=== PATIENT | male | born 1970 | race Two or more races ===

== ENCOUNTER 2022-07-04 20:53 | Inpatient (IN) | payer MEDICAID, OTHER ==
[~2022-07-04] VITALS: Ht 185.4 cm; Wt 96.0 kg
[2022-07-04] MEDS ORDERED: InsuLIN REG 1unit/0.01ml Soln (100units/ml) IV ONE (21:45)
[2022-07-04] MEDS ORDERED: PIPERACILLIN-TAZOB 3.375GM 100 ML IV ONE (21:45)
[2022-07-04] MEDS ORDERED: EPINEPHrine HCL 1 MG/10 ML SYRG IV ONE (21:45)
[2022-07-04] MEDS ORDERED: SODIUM CHLORIDE 0.9% 1,000 ML IV ONE (21:45)
[2022-07-04 22:36] LABS: Basophils # (auto) 0 10 ^3/uL (0-0.2); Basophils % (auto) 0.2 % (0.0-2.0); Eosinophils # (auto) 0 10 ^3/uL (0-0.8); Hematocrit 40.8 % (41.0-53.0); Lymphocytes # (auto) 0.9 10 ^3/uL (0.4-5.4); Lymphocytes % (auto) 11.8 % (10.0-50.0); Mean Corpuscular Hgb Conc. 31.9 g/dL (32.0-36.0); Mean Corpuscular Volume 94.3 fL (80.0-100.0); Monocytes # (auto) 0.7 10 ^3/uL (0-1.3); Monocytes % (auto) 8.9 % (0.0-12.0); Neutrophils # (auto) 5.9 10 ^3/uL (1.6-8.6); Neutrophils % (auto) 79.1 % (37.0-80.0); Nucleated Red Blood Cells % 0.1 %; Red Blood Cells 4.33 10^6/uL (4.5-5.90); White Blood Cell 7.4 10^3/uL (4.4-10.8)
[2022-07-04 22:42] LABS: Red Cell Distribution Width 21.5 % (11.8-14.3)
[2022-07-04 22:52] LABS: INR 0.92 (0.9-1.15); Partial Thromboplastin Time 21.7 sec (24.6-33.4)
[2022-07-04 22:56] LABS: Albumin 3.9 g/dL (3.4-5.0); Anion Gap 23 (5-15); Blood Urea Nitrogen 36 mg/dL (7-18); Calcium 10.5 mg/dL (8.5-10.1); Carbon Dioxide 28 mmol/L (21-32); Chloride 79 mmol/L (98-107); Magnesium 2.3 mg/dL (1.6-2.6); Potassium 3.4 mmol/L (3.5-5.1); Sodium 130 mmol/L (136-145)
[2022-07-04 22:58] LABS: Lactic Acid w/Reflex 11.5 mmol/L (0.4-2.0)
[2022-07-04 22:59] LABS: Alanine Aminotransferase 14 U/L (16-61); BUN/Creatinine Ratio 11.8; Bilirubin, Total 0.4 mg/dL (0.2-1.0); GFR African American 28 mL/min; GFR Non-African American 23 mL/min; Total Protein 8.2 g/dL (6.4-8.2)
[2022-07-04] MEDS ORDERED: BACL10TA PO (23:00)
[2022-07-04] MEDS ORDERED: CLON0.3D4 PO (23:00)
[2022-07-04] MEDS ORDERED: EZET10TA22 PO (23:00)
[2022-07-04] MEDS ORDERED: TRAZ50TA2 PO (23:00)
[2022-07-04] MEDS ORDERED: ONDA-144 PO (23:00)
[2022-07-04] MEDS ORDERED: LORA1TAB23 PO (23:00)
[2022-07-04] MEDS ORDERED: ATOR40TA52 PO (23:00)
[2022-07-04] MEDS ORDERED: OLAN2.5T38 PO (23:00)
[2022-07-04] MEDS ORDERED: ENOX80IN SC (23:00)
[2022-07-04] MEDS ORDERED: RAMI2.5C33 PO (23:00)
[2022-07-04] MEDS ORDERED: INSLISPI SC (23:00)
[2022-07-04 23:03] LABS: Glucose 891 mg/dL (74-106)
[2022-07-04 23:05] LABS: Alkaline Phosphatase 88 U/L (45-117)
[2022-07-04 23:21] LABS: Aspartate Aminotransferase < 3 U/L (15-37)
[2022-07-04] MEDS ORDERED: InsuLIN REG 1unit/0.01ml Soln (100units/ml) ONE (23:29)
[2022-07-04] MEDS ORDERED: InsuLIN R (HUMAN) 100 UNITS in SODIUM CHL 0.9% 99 ML IV SCH (23:30)
[2022-07-04] MEDS ORDERED: INSULIN LANTUS (GLARGINE) 1 /0.01ml (100units/ml) SC ONE (23:30)
[2022-07-04] MEDS ORDERED: DEXTROSE (50%) 50ML SYRG IV PRN (23:30)
[2022-07-04] MEDS ORDERED: SODIUM CHLORIDE 0.9% 1,000 ML IV SCH (23:30)
[2022-07-05] MEDS: ACCU-CHEK COMFORT CURVE STRIP VI SCH ×11 (00:02→22:16)
[2022-07-05 00:18] LABS: Urine Bacteria NONE SEEN /hpf (None Seen); Urine Blood Negative /uL (Negative); Urine Mucus FEW (None Seen); Urine Specific Gravity 1.025 (1.001-1.035); Urine WBC 3 /hpf (0 - 3)
[2022-07-05] MEDS ORDERED: InsuLIN R (HUMAN) 100 UNITS in SODIUM CHL 0.9% 99 ML IV SCH (00:30)
[2022-07-05] MEDS ORDERED: DOCUSATE SOD 100 MG CAP PO PRN (00:30)
[2022-07-05] MEDS ORDERED: TEMAZEPAM 15 MG CAP PO PRN (00:30)
[2022-07-05] MEDS ORDERED: INSULIN LANTUS (GLARGINE) 1 /0.01ml (100units/ml) SC ONE (00:30)
[2022-07-05] MEDS ORDERED: MORPHINE SULFATE INJ 2 MG/ml SYRG IV PRN (00:30)
[2022-07-05] MEDS ORDERED: LORazepam 0.5 MG TAB PO PRN (00:30)
[2022-07-05] MEDS ORDERED: ONDANSETRON HCL 4 MG/2 ML VIAL IV PRN (00:30)
[2022-07-05] MEDS ORDERED: HYDROcodone-ACET 5/325MG TAB PO PRN (00:30)
[2022-07-05] MEDS ORDERED: DEXTROSE (50%) 50ML SYRG IV PRN (00:30)
[2022-07-05] MEDS: SODIUM CHLORIDE 0.9% 1,000 ML IV SCH ×4 (00:45→11:27)
[2022-07-05 02:01] LABS: Calcium 9.6 mg/dL (8.5-10.1); Potassium 3.7 mmol/L (3.5-5.1)
[2022-07-05] MEDS ORDERED: SODIUM CHLORIDE 0.9% 1,000 ML IV SCH ×3 (04:30→12:00)
[2022-07-05] MEDS: InsuLIN REG 1unit/0.01ml Soln (100units/ml) SC SCH ×4 (07:00→22:00)
[2022-07-05 07:53] LABS: Calcium 9.3 mg/dL (8.5-10.1); Potassium 3.4 mmol/L (3.5-5.1)
[2022-07-05 07:55] LABS: BUN/Creatinine Ratio 19.1
[2022-07-05 07:56] LABS: Hematocrit 34.9 % (41.0-53.0); Hemoglobin 11.7 g/dL (13.5-17.5); Mean Corpuscular Hgb Conc. 33.5 g/dL (32.0-36.0); Mean Corpuscular Volume 89.6 fL (80.0-100.0); White Blood Cell 6.6 10^3/uL (4.4-10.8)
[2022-07-05 08:05] LABS: Red Cell Distribution Width 21.4 % (11.8-14.3)
[2022-07-05 08:08] LABS: Basophils % (manual) 0 (0.0-2.0); Blast Cells 0; Myelocytes % 0; Promyelocytes % 0; Reactive Lymphocytes 0
[2022-07-05 09:17] LABS: Band Neutrophils % (manual) 50; Eosinophils % (manual) 2 (0-7); Lymphocytes % (manual) 27 (10.0-50.0); Metamyelocytes % 2; Monocytes % (manual) 15 (0-12)
[2022-07-05] MEDS ORDERED: INSULIN LANTUS (GLARGINE) 1 /0.01ml (100units/ml) SC SCH (10:00)
[2022-07-05] MEDS ORDERED: PANTOPRAZOLE 40 MG/10 ML VIAL INJ IV ONE (12:00)
[2022-07-05] MEDS: SOD CHL 0.9%/ KCL 20MEQ 1,000 ML IV SCH ×2 (12:35→22:55)
[2022-07-05] MEDS: MIDODRINE HCL 10 MG TAB PO SCH ×2 (12:35→18:04)
[2022-07-05] MEDS: INSULIN LANTUS (GLARGINE) 1 /0.01ml (100units/ml) SC SCH (12:39)
[2022-07-05 13:52] LABS: Lactic Acid w/Reflex 4.3 mmol/L (0.4-2.0)
[2022-07-06 05:00] VITALS: BP 122/65
[2022-07-06] MEDS: MIDODRINE HCL 10 MG TAB PO SCH ×3 (06:00→17:40)
[2022-07-06] MEDS: InsuLIN REG 1unit/0.01ml Soln (100units/ml) SC SCH ×4 (06:34→22:14)
[2022-07-06] MEDS: ACCU-CHEK COMFORT CURVE STRIP VI SCH ×4 (06:36→22:10)
[2022-07-06 07:26] LABS: Albumin 2.6 g/dL (3.4-5.0); Anion Gap 5 (5-15); Blood Urea Nitrogen 19 mg/dL (7-18); Calcium 8.3 mg/dL (8.5-10.1); Carbon Dioxide 29 mmol/L (21-32); Chloride 104 mmol/L (98-107); Glucose 117 mg/dL (74-106); Potassium 3.8 mmol/L (3.5-5.1); Sodium 138 mmol/L (136-145)
[2022-07-06 07:29] LABS: Alanine Aminotransferase 10 U/L (16-61); Aspartate Aminotransferase < 3 U/L (15-37); BUN/Creatinine Ratio 18.1; GFR African American 95 mL/min; GFR Non-African American 79 mL/min
[2022-07-06 07:31] LABS: Alkaline Phosphatase 59 U/L (45-117); Bilirubin, Total 0.4 mg/dL (0.2-1.0); Total Protein 5.8 g/dL (6.4-8.2)
[2022-07-06 07:42] LABS: Basophils # (auto) 0 10 ^3/uL (0-0.2); Basophils % (auto) 0.3 % (0.0-2.0); Eosinophils # (auto) 0.2 10 ^3/uL (0-0.8); Eosinophils % (auto) 2.6 % (0.0-7.0); Hemoglobin 10.7 g/dL (13.5-17.5); Lymphocytes # (auto) 0.8 10 ^3/uL (0.4-5.4); Lymphocytes % (auto) 8.5 % (10.0-50.0); Mean Corpuscular Hemoglobin 29.6 pg (28.0-32.0); Mean Corpuscular Hgb Conc. 32.5 g/dL (32.0-36.0); Mean Corpuscular Volume 91.2 fL (80.0-100.0); Monocytes # (auto) 1.2 10 ^3/uL (0-1.3); Monocytes % (auto) 13.8 % (0.0-12.0); Neutrophils # (auto) 6.8 10 ^3/uL (1.6-8.6); Neutrophils % (auto) 74.8 % (37.0-80.0); Red Blood Cells 3.62 10^6/uL (4.5-5.90); Red Cell Distribution Width 21.7 % (11.8-14.3)
[2022-07-06 08:46] VITALS: BP 126/75
[2022-07-06] MEDS: PANTOPRAZOLE 40 MG/10 ML VIAL INJ IV SCH (09:20)
[2022-07-06] MEDS: SOD CHL 0.9%/ KCL 20MEQ 1,000 ML IV SCH ×2 (09:41→18:09)
[2022-07-06] MEDS ORDERED: INSULIN LANTUS (GLARGINE) 1 /0.01ml (100units/ml) SC SCH (10:00)
[2022-07-06] MEDS: INSULIN LANTUS (GLARGINE) 1 /0.01ml (100units/ml) SC SCH (10:30)
[2022-07-06] MEDS ORDERED: GABA300C10 PO (12:28)
[2022-07-06 13:00] VITALS: BP 130/75
[2022-07-06] MEDS ORDERED: METOCLOPRAMIDE HCL 10 MG TAB PO PRN (15:30)
[2022-07-06 16:39] VITALS: BP_SYST 111; BP_SYST 125; BP_DIAS 64; BP_DIAS 75
[2022-07-06] MEDS: ACETAMINOPHEN 325 MG TAB PO PRN (18:10)
[2022-07-06 20:16] LABS: Urine Bacteria FEW /hpf (None Seen); Urine Blood Negative /uL (Negative); Urine Specific Gravity 1.009 (1.001-1.035); Urine Sperm PRESENT /hpf (None Seen); Urine WBC <1 /hpf (0 - 3)
[2022-07-06 21:56] VITALS: BP 117/75
[2022-07-06] MEDS: GABAPENTIN 300 MG CAP PO SCH (22:10)
[2022-07-07] MEDS: SOD CHL 0.9%/ KCL 20MEQ 1,000 ML IV SCH ×3 (03:53→23:01)
[2022-07-07] MEDS: ACETAMINOPHEN 325 MG TAB PO PRN (04:03)
[2022-07-07 05:00] VITALS: BP 122/56
[2022-07-07] MEDS: GABAPENTIN 300 MG CAP PO SCH ×3 (06:18→22:16)
[2022-07-07] MEDS: MIDODRINE HCL 10 MG TAB PO SCH ×3 (06:18→17:39)
[2022-07-07] MEDS: ACCU-CHEK COMFORT CURVE STRIP VI SCH ×4 (06:19→21:09)
[2022-07-07] MEDS: InsuLIN REG 1unit/0.01ml Soln (100units/ml) SC SCH ×4 (06:19→21:09)
[2022-07-07 06:37] LABS: Basophils # (auto) 0 10 ^3/uL (0-0.2); Basophils % (auto) 0.3 % (0.0-2.0); Eosinophils # (auto) 0.2 10 ^3/uL (0-0.8); Eosinophils % (auto) 1.6 % (0.0-7.0); Hematocrit 33.5 % (41.0-53.0); Hemoglobin 11.2 g/dL (13.5-17.5); Lymphocytes # (auto) 1.3 10 ^3/uL (0.4-5.4); Lymphocytes % (auto) 9.1 % (10.0-50.0); Mean Corpuscular Hemoglobin 30.1 pg (28.0-32.0); Mean Corpuscular Hgb Conc. 33.3 g/dL (32.0-36.0); Mean Corpuscular Volume 90.4 fL (80.0-100.0); Monocytes # (auto) 1.8 10 ^3/uL (0-1.3); Monocytes % (auto) 12.1 % (0.0-12.0); Neutrophils # (auto) 11.2 10 ^3/uL (1.6-8.6); Neutrophils % (auto) 76.9 % (37.0-80.0); Red Blood Cells 3.71 10^6/uL (4.5-5.90); White Blood Cell 14.5 10^3/uL (4.4-10.8)
[2022-07-07 06:42] LABS: Red Cell Distribution Width 20.8 % (11.8-14.3)
[2022-07-07 07:01] LABS: Calcium 8.3 mg/dL (8.5-10.1); Chloride 106 mmol/L (98-107); Potassium 3.9 mmol/L (3.5-5.1); Sodium 137 mmol/L (136-145)
[2022-07-07 07:05] LABS: Alanine Aminotransferase 9 U/L (16-61); Albumin 2.7 g/dL (3.4-5.0); Anion Gap 4 (5-15); Aspartate Aminotransferase < 3 U/L (15-37); Blood Urea Nitrogen 10 mg/dL (7-18); Carbon Dioxide 27 mmol/L (21-32); GFR African American 101 mL/min; GFR Non-African American 83 mL/min; Glucose 126 mg/dL (74-106)
[2022-07-07 07:07] LABS: Alkaline Phosphatase 71 U/L (45-117); Bilirubin, Total 0.4 mg/dL (0.2-1.0); Total Protein 6.1 g/dL (6.4-8.2)
[2022-07-07 09:00] VITALS: BP 119/68
[2022-07-07] MEDS: PANTOPRAZOLE 40 MG/10 ML VIAL INJ IV SCH (10:00)
[2022-07-07] MEDS: ENOXAPARIN SOD 80 MG/0.8ML SYRINGE SC SCH ×2 (11:44→22:16)
[2022-07-07] MEDS: INSULIN LANTUS (GLARGINE) 1 /0.01ml (100units/ml) SC SCH (11:46)
[2022-07-07 13:00] VITALS: BP 142/81
[2022-07-07] MEDS ORDERED: REMDESIVIR PER PHARMACY 0 ML IV SCH (14:45)
[2022-07-07] MEDS ORDERED: ONDANSETRON HCL 4 MG/2 ML VIAL IV PRN (15:00)
[2022-07-07] MEDS ORDERED: ONDANSETRON ODT 4 MG TAB PO PRN (15:00)
[2022-07-07 16:53] VITALS: BP 151/89
[2022-07-07] MEDS ORDERED: REMDESIVIR 200 MG in NS 210ml LOADING DOSE ADULT IV ONE (17:00)
[2022-07-07 22:00] VITALS: BP 141/77
[2022-07-08 05:00] VITALS: BP 137/76
[2022-07-08] MEDS: MIDODRINE HCL 10 MG TAB PO SCH ×3 (05:14→18:19)
[2022-07-08] MEDS: GABAPENTIN 300 MG CAP PO SCH ×3 (05:14→21:48)
[2022-07-08 05:53] LABS: Hemoglobin 10.5 g/dL (13.5-17.5); Mean Corpuscular Hemoglobin 29.6 pg (28.0-32.0); Mean Corpuscular Hgb Conc. 32.7 g/dL (32.0-36.0); Mean Corpuscular Volume 90.4 fL (80.0-100.0); Red Blood Cells 3.54 10^6/uL (4.5-5.90); White Blood Cell 12.9 10^3/uL (4.4-10.8)
[2022-07-08] MEDS: ACCU-CHEK COMFORT CURVE STRIP VI SCH ×4 (06:02→21:48)
[2022-07-08] MEDS: InsuLIN REG 1unit/0.01ml Soln (100units/ml) SC SCH ×4 (06:03→21:50)
[2022-07-08 06:04] LABS: Albumin 2.5 g/dL (3.4-5.0); Calcium 7.8 mg/dL (8.5-10.1); Potassium 3.7 mmol/L (3.5-5.1)
[2022-07-08 06:07] LABS: BUN/Creatinine Ratio 8.1; Bilirubin, Total 0.2 mg/dL (0.2-1.0); Total Protein 5.6 g/dL (6.4-8.2)
[2022-07-08 06:36] LABS: Red Cell Distribution Width 20.9 % (11.8-14.3)
[2022-07-08 06:37] LABS: Basophils % (manual) 0 (0.0-2.0); Blast Cells 0; Metamyelocytes % 0; Myelocytes % 0; Promyelocytes % 0; Reactive Lymphocytes 0
[2022-07-08 08:00] VITALS: BP 151/87
[2022-07-08] MEDS: PANTOPRAZOLE 40 MG/10 ML VIAL INJ IV SCH (08:54)
[2022-07-08] MEDS: SOD CHL 0.9%/ KCL 20MEQ 1,000 ML IV SCH ×2 (08:54→21:47)
[2022-07-08] MEDS: ENOXAPARIN SOD 80 MG/0.8ML SYRINGE SC SCH ×2 (08:56→21:48)
[2022-07-08] MEDS: INSULIN LANTUS (GLARGINE) 1 /0.01ml (100units/ml) SC SCH (08:57)
[2022-07-08 09:05] LABS: Band Neutrophils % (manual) 14; Eosinophils % (manual) 4 (0-7); Lymphocytes % (manual) 17 (10.0-50.0); Monocytes % (manual) 9 (0-12)
[2022-07-08 12:00] VITALS: BP 158/90
[2022-07-08 16:00] VITALS: BP 146/76
[2022-07-08] MEDS: REMDESIVIR 100mg 100 MG in SODIUM CHL 0.9% 230 ML IV SCH (16:04)
[2022-07-08 22:05] VITALS: BP 144/90
[2022-07-09 04:44] VITALS: BP 144/96
[2022-07-09] MEDS: SOD CHL 0.9%/ KCL 20MEQ 1,000 ML IV SCH (05:12)
[2022-07-09] MEDS: MIDODRINE HCL 10 MG TAB PO SCH ×3 (05:13→18:06)
[2022-07-09] MEDS: GABAPENTIN 300 MG CAP PO SCH ×2 (05:13→13:16)
[2022-07-09] MEDS: ACCU-CHEK COMFORT CURVE STRIP VI SCH ×3 (06:00→18:07)
[2022-07-09] MEDS: InsuLIN REG 1unit/0.01ml Soln (100units/ml) SC SCH ×3 (06:00→18:09)
[2022-07-09 07:06] LABS: Potassium 3.4 mmol/L (3.5-5.1)
[2022-07-09 07:14] LABS: Hematocrit 31.4 % (41.0-53.0); Hemoglobin 10.6 g/dL (13.5-17.5); Mean Corpuscular Hemoglobin 30.2 pg (28.0-32.0); Mean Corpuscular Hgb Conc. 33.7 g/dL (32.0-36.0); Mean Corpuscular Volume 89.6 fL (80.0-100.0); Red Blood Cells 3.51 10^6/uL (4.5-5.90); White Blood Cell 10.6 10^3/uL (4.4-10.8)
[2022-07-09 07:15] LABS: Red Cell Distribution Width 20.8 % (11.8-14.3)
[2022-07-09 07:17] LABS: Band Neutrophils % (manual) 0; Basophils % (manual) 0 (0.0-2.0); Blast Cells 0; Metamyelocytes % 0; Promyelocytes % 0; Reactive Lymphocytes 0
[2022-07-09 07:22] LABS: Albumin 2.5 g/dL (3.4-5.0); BUN/Creatinine Ratio 7.6; Bilirubin, Total 0.3 mg/dL (0.2-1.0); Calcium 7.9 mg/dL (8.5-10.1); Total Protein 6.3 g/dL (6.4-8.2)
[2022-07-09 08:00] VITALS: BP 135/78
[2022-07-09] MEDS: ENOXAPARIN SOD 80 MG/0.8ML SYRINGE SC SCH (09:18)
[2022-07-09] MEDS: PANTOPRAZOLE 40 MG/10 ML VIAL INJ IV SCH (09:18)
[2022-07-09] MEDS ORDERED: INSULIN LANTUS (GLARGINE) 1 /0.01ml (100units/ml) SC SCH (10:00)
[2022-07-09 12:00] VITALS: BP 144/82
[2022-07-09 14:39] LABS: Eosinophils % (manual) 8 (0-7); Lymphocytes % (manual) 31 (10.0-50.0); Monocytes % (manual) 12 (0-12); Myelocytes % 3
[2022-07-09] MEDS ORDERED: ONDA-144 PO (15:33)
[2022-07-09] MEDS ORDERED: INSLANTI SC (15:33)
[2022-07-09 16:00] VITALS: BP 144/89
[2022-07-09] MEDS: REMDESIVIR 100mg 100 MG in SODIUM CHL 0.9% 230 ML IV SCH (16:39)
== END 2022-07-09 18:30 | disposition home or self-care (01) | DRG 249 ==
LOC: EDBD 20:53 → ER 20:58 → TELE 07-05 00:23 → WEST WING 07-05 23:21
PROVIDERS: ADMIT Hospitalist; ATTEND Student in an Organized Health Care Education/Training Program
PROC: XW033E5 Introduction of Remdesivir Anti-infective into Peripheral Vein, Percutaneous Approach, New Technology Group 5 (ICD-10-PCS; principal; 2022-07-09)
DX: A08.4 Viral intestinal infection, unspecified (principal); E11.00 Type 2 diabetes mellitus with hyperosmolarity without nonketotic hyperglycemic-hyperosmolar coma (NKHHC); U07.1 COVID-19; N17.9 Acute kidney failure, unspecified; D84.821 Immunodeficiency due to drugs; I95.9 Hypotension, unspecified; E86.0 Dehydration; E11.10 Type 2 diabetes mellitus with ketoacidosis without coma; C25.9 Malignant neoplasm of pancreas, unspecified; Z66 Do not resuscitate; A05.9 Bacterial foodborne intoxication, unspecified; E78.5 Hyperlipidemia, unspecified; Z96.41 Presence of insulin pump (external) (internal); T45.1X5A Adverse effect of antineoplastic and immunosuppressive drugs, initial encounter; Y92.89 Other specified places as the place of occurrence of the external cause; Z85.07 Personal history of malignant neoplasm of pancreas; Z90.411 Acquired partial absence of pancreas; Z23 Encounter for immunization
CPT/HCPCS: 36415; 36600; 71045; 80048; 80053; 81001; 82010; 82805; 82962; 83605; 83690; 83735; 83880; 84484; 85007; 85025; 85027; 85610; 85730; 86850; 86900; 86901; 87040; 87081; 87086; 87426; 87804; 96361; 96365; 96366; 96367; 96372; 96375; 96376; 97116; 97163; 99291; C9113; G0378; J1815; J2405; J2543